=== PATIENT | female | born 1970 | race Caucasian/White ===

== ENCOUNTER → 2021-03-26 10:00 | Outpatient (BNVA) | payer MEDICAID, SELFPAY | PROVIDERS: Family Provider Registered Nurse; PCP Family Medicine; Visit Provider Nurse Practitioner Women's Health | DX: Z01.419 Encounter for gynecological examination (general) (routine) without abnormal findings (principal) | CPT/HCPCS: 87624 ==

== ENCOUNTER → 2022-05-24 13:20 | Outpatient (BNVA) | payer MEDICAID, SELFPAY | PROVIDERS: Family Provider Registered Nurse; PCP Family Medicine; Visit Provider Nurse Practitioner Women's Health | DX: N91.2 Amenorrhea, unspecified (principal) | CPT/HCPCS: 82670; 83001 ==

== ENCOUNTER → 2022-07-27 14:08 | Outpatient (BNVA) | payer MEDICAID, SELFPAY | PROVIDERS: Family Provider Registered Nurse; PCP Family Medicine; Visit Provider Nurse Practitioner Women's Health | DX: N95.0 Postmenopausal bleeding (principal) | CPT/HCPCS: 76830 ==

== ENCOUNTER 2022-09-09 14:23 | Outpatient (CLI) | payer MEDICAID, SELFPAY ==
--- NOTE | 2022-09-09 14:45 | US_ITS ---
WS: [id number] US transvaginal [id number] HISTORY: N95.1 - Menopausal and female climacteric states COMPARISON: 07/27/2022 Uterus: 7.2 cm x 4.2 cm x 3.8 cm. Posterior positioning of the uterus. Uterus is directed posteriorly. Incomplete and very poor evaluat ion of the uterus. Endometrium: Not visualized. Right ovary: 2.3 cm x 2.3 cm x 1.3 cm. Normal size and vascularity, no cystic or solid masses. Left ovary: Not visualized. No free fluid in the cul-de-sac. US/US transvaginal [id number] IMPRESSION: 1. Nondiagnostic evaluation of the uterus and endometrium. Due to position of the uterus the endometrium is not evaluated completely. Endometrium is not adeq uately evaluated to exclude malignancy and explain the cause of bleeding. 2. Nonvisualization LEFT ovary.
== END 2022-09-09 14:24 | disposition home or self-care (01) ==
LOC: RAD 14:24
PROVIDERS: PCP Family Medicine; Visit Provider Obstetrics & Gynecology
DX: N95.1 Menopausal and female climacteric states (principal)
CPT/HCPCS: 76830

== ENCOUNTER 2022-10-20 09:17 | Day surgery (SDC) | payer MEDICAID, SELFPAY ==
[2022-10-19 12:26] VITALS: BMI 32.9
--- NOTE | 2022-10-19 23:40 | PM.OBGYHP ---
Providers/Chief Complaint Admitting Physician: Brandon Carroll MD Primary BENCH ASSEMBLY INSPECTOR: Brandon Carroll MD Primary Care Provider: Azul Spence DO Chief Complaint: 08144 N93.9 HPI BENCH ASSEMBLY INSPECTOR History of Present Illness Jennifer Montague is a 52 year old female 52 y.o. A2 LNMP? April 2021 Now with abnormal uterine bleeding Scheduled for hysteroscopy, endometrial sampling, possible endometrial polypectomy Medications/Allergies Home Medications Medication Instructions Recorded Confirmed Last Taken Type levothyroxine 25 mcg capsule 25 mcg PO DAILY 01/15/20 10/19/22 10/19/22 History simvastatin 5 mg tablet 5 mg PO DAILY 01/15/20 10/19/22 10/19/22 History Allergies Allergy/AdvReac Type Severity Reaction Status Date / Time Sulfa (Sulfonamide Allergy Mild swelling Verified 08/29/22 14:31 Antibiotics) PFSH [employer]CH [employer]SEMBLY INSPECTOR PFSH: Medical History Cervical polyp Hypercholesteremia Hypothyroid No pertinent past medical history neghx: htn,dm,dvt/pe PCP: Dr. Spence Vitamin B12 deficiency Surgical History No pertinent past surgical history Family History Father Hypercholesteremia Stroke Hypertension Heart disease Denies family history of Colon cancer Ovarian cancer Diabetes Breast cancer Uterine cancer Thyroid disease History History History 4 Term 2 0 Miscarriages/Ectopic 2 Living Children 2 Vitals/I&O/Wt Weight last 48 hrs Weight 180 lb Physical Exam Narrative: Weight? 192? lbs;? 5?2? HEENT:? normal Lungs:? clear Cor:? RRR Abd:? soft, nontender Results PAP 03-26-21? Pap? normal;? HPV? negative [employer] Ultrasound 07-27-22? pelvic sono? uterus? 7 x 5 x 5 cm ? Endometrium ??7 mm ? Normal right ovary ? Left ovary poorly visualized, possible 2-3 cm left adnexal ? Mass A&P Assessment and plan (1) Abnormal uterine bleeding: Plan hysteroscopy, endometrial sampling, possible endometrial polypectomy Procedures and risks explained, including risks of infection, bleeding, injury to internal organs, anesthesia, blood transfusions Patient understands and wants to proceed Attestations Medical Necessity Statement*: patient with abnormal uterine bleeding, now scheduled for hysteroscopy, endometrial sampling, possible endometrial polypectomy Coding Level of Care Code Acute Code for Chg Fwd Diagnoses Abnormal uterine bleeding N93.9 Time Spent (min) 30
[2022-10-20] VITALS (11 sets, daily range): BP systolic 114–156; BP diastolic 62–95; PULSE 61–83; RESP 13–18; TEMP 36.1–36.7; O2SAT 93–98
--- NOTE | 2022-10-20 09:31 | W.PM.OPSUD ---
Surgery/Procedure H&P Update DATE OF PROCEDURE: October 20, 2022 DATE H&P PERFORMED: 10/19/22 H&P UPDATE INFORMATION: I have reviewed H&P completed within last 30 days, I have examined patient prior to procedure and No changes to prior documentation PREOP DIAGNOSIS: abnormal uterine bleeding PLANNED PROCEDURE: Operation Date: 10/20/22 11:15 Proposed Procedures p Hysteroscopy, endometrial sampling, possible endometrial polypectomy w/Myosure 89807,N93.9(Not Applicable) - Brandon Carroll MD s Poylpectomy(Not Applicable) - Brandon Carroll MD
[2022-10-20 09:48] LABS: OR HCG Qualitative Urine Negative (Negative)
[2022-10-20] MEDS: sodium chloride 0.9% 1,000 ML 30 ML IV (10:10)
--- NOTE | 2022-10-20 15:13 | ANES.PREANE2 ---
Pre-Anesthetic Assessment Height/Weight: Height 1.57 m Weight 81.647 kg Temp Pulse Resp BP Pulse Ox O2 Del Method 98.0 F 67 16 138/81 97 Room Air 10/20/22 12:30 10/20/22 12:30 10/20/22 12:30 10/20/22 12:30 10/20/22 12:30 10/20/22 12:30 Preop Diagnosis: abnormal uterine bleeding Operation Date: 10/20/22 11:15 Proposed Procedures p Hysteroscopy, endometrial sampling, possible endometrial polypectomy w/Myosure [id number],N93.9(Not Applicable) - Brandon Carroll MD s Poylpectomy(Not Applicable) - Brandon Carroll MD Familial anesthetic complications: none Was Beta Hadley taken within 24 hours: N/A Was Clonidine taken within 24 hours: N/A Last intake: Intake Last Liquid Date 10/19/22 Last Liquid Time 17:30 Last Solid Date 10/19/22 Last Solid Time 17:30 Social No alcohol and No tobacco Exam alert, oriented x 3, clear to auscultation bilaterally and regular rate & rhythm Airway Submandibular: within normal limits Cervical ROM: within normal limits Mallampati: Class II Dentition: full Metabolic Hyperlipidemia, Morbid Obesity and Thyroid Disease Anesthetic Plan ASA status: 2 Anesthesia: General Medications/Allergies Home Medications Medication Instructions Recorded Confirmed Last Taken Type levothyroxine 25 mcg capsule 25 mcg PO DAILY 01/15/20 10/19/22 10/20/22 History simvastatin 5 mg tablet 5 mg PO DAILY 01/15/20 10/19/22 10/19/22 21:00 History Allergies Allergy/AdvReac Type Severity Reaction Status Date / Time Sulfa (Sulfonamide Allergy Mild swelling Verified 08/29/22 14:31 Antibiotics) PFSH Anesthesia Medical History Cervical polyp Hypercholesteremia Hypothyroid No pertinent past medical history neghx: htn,dm,dvt/pe PCP: Dr. Spence Vitamin B12 deficiency Surgical History No pertinent past surgical history Family History Father Hypercholesteremia Stroke Hypertension Heart disease Denies family history of Colon cancer Ovarian cancer Diabetes Breast cancer Uterine cancer Thyroid disease Data Anesthesia Cardiac Studies: No Data to Display
--- NOTE | 2022-10-20 15:15 | ANE.PACU2 ---
Inpatient post-anesthesia follow up: Airway intact: Yes Vital signs: Temperature 98.0 F Pulse Rate 67 Respiratory Rate 16 Blood Pressure 138/81 Pulse Oximetry 97 Oxygen Delivery Me thod Room Air Oxygen Flow Rate Fraction of Inspir ed Oxygen Hydration adequate: Yes Nausea and vomiting: No Pain level: 3 Mental status: Baseline
--- NOTE | 2022-10-20 22:03 | PM.OP ---
Operative Report Date of procedure: October 20, 2022 Pre-op diagnosis: Preop Diagnosis abnormal uterine bleeding Post-op diagnosis: same Post-op findings: Uterus sounded to 8 cm Normal endometrial cavity Minimal endometrial tissue No polyps / fibroids Procedure done: hysteroscopy Curettage of uterus Specimens removed/disposition: endometrial curettings Surgeon: Brandon Carroll MD Anesthesia: MAC Estimated blood loss (mL): 5 Complications: none Condition: stable Disposition: PACU Brief History: 52 y.o. with abnormal uterine bleeding Procedure: Informed consent signed. Patient was taken to the operating room.? Anesthesia induced.? Patient was placed in dorsolithotomy position, prepped and draped for hysteroscopy.? A bivalve speculum was placed in the vagina.? The anterior lip of the cervix was grasped with a sharp-toothed tenaculum.? The cervix was serially dilated with Hegar dilators.? .? A hysteroscope was placed into the endometrial cavity.? The endometrial cavity was seen to be normal.? There were no polyps or fibroids.? There was minimal endometrial tissue.? The hysteroscope was then removed.? Endometrial curettage was done with a sharp curette.? Endometrial tissue was sent to pathology.?? The sharp-toothed tenaculum was removed.? There was no bleeding from the endometrial cavity or cervix.? The patient was then placed supine and awakened and taken to the PACU. Postop condition:? stable EBL:? none Sponge and instruments counts were normal x 2 Complications:? none
== END 2022-10-20 12:50 | disposition home or self-care (01) ==
PROVIDERS: Anesthesiology; PCP Family Medicine; Visit Provider Obstetrics & Gynecology
PROC: 0UJD8ZZ Inspection of Uterus and Cervix, Via Natural or Artificial Opening Endoscopic (ICD-10-PCS; CPT 58555; principal; 2022-10-20 11:05)
DX: N93.9 Abnormal uterine and vaginal bleeding, unspecified (principal); E78.5 Hyperlipidemia, unspecified; E03.9 Hypothyroidism, unspecified
CPT/HCPCS: 58558; 84703; 88305; J1100; J1885; J2250; J2405; J2704; J3010; J7030

== ENCOUNTER → 2023-08-30 07:49 | Outpatient (BNVA) | payer MEDICAID, SELFPAY | PROVIDERS: PCP Family Medicine; Visit Provider Nurse Practitioner Women's Health | DX: N95.1 Menopausal and female climacteric states (principal); D25.9 Leiomyoma of uterus, unspecified | CPT/HCPCS: 76830 ==

== ENCOUNTER 2025-03-17 15:24 | Outpatient (CLI) | payer MEDICAID, SELFPAY ==
--- NOTE | 2025-03-17 15:30 | XR_ITS ---
WS: [id number] DEXA (DUAL ENERGY X-RAY ABSORPTIOMETRY) Bone mineral density was performed using a [employer] machine. HISTORY: Z13.820 - Encounter for screening for osteoporosis COMPARISON: None available. Lumbar spine BMD (L1-L4): 1.140 g/cm2 T score: -0.3 Z score: -0.2 Total hip BMD: Left: 1.021 g/cm2. T score: 0.1 Z score: 0.3 Right: 1.078 g/cm2. T score: 0.6 Z score: 0.7 10 year probability of a major osteoporotic fracture is 5.6%. XR/XR DEXA axial skeleton* 15291 IMPRESSION: NORMAL BONE MINERAL DENSITY based upon the WHO classification for females.
== END 2025-03-17 15:25 | disposition home or self-care (01) ==
PROVIDERS: PCP Family Medicine; Visit Provider Nurse Practitioner Women's Health
DX: Z13.820 Encounter for screening for osteoporosis (principal)
CPT/HCPCS: 77080

== ENCOUNTER → 2025-03-19 08:18 | Outpatient (BNVA) | payer MEDICAID, SELFPAY | PROVIDERS: PCP Family Medicine; Visit Provider Nurse Practitioner Women's Health | DX: Z13.0 Encounter for screening for diseases of the blood and blood-forming organs and certain disorders involving the immune mechanism (principal); E66.9 Obesity, unspecified; E78.00 Pure hypercholesterolemia, unspecified | CPT/HCPCS: 80053; 80061; 83036; 84439; 84443; 85025 ==